=== PATIENT | female | born 1940 | race Caucasian/White ===

== ENCOUNTER → 2017-12-05 | Outpatient (CLI) | payer MEDICARE, MEDICAID ==
[~2017-12-05] MED LIST: ASPI-1160 PO; BENA40TA3 PO; CLOP75TA15 PO; HYDR25TA PO; NITR100C PO; OMEP20CA10 PO; OXYB5TAB11 PO; SIMV20TA6 PO
== END | disposition home or self-care (01) ==
LOC: MAMMO 13:06
PROVIDERS: ATTEND Specialist
DX: Z12.31 Encounter for screening mammogram for malignant neoplasm of breast (principal)
CPT/HCPCS: 77067

== ENCOUNTER 2019-07-25 21:52 | Emergency (ER) | payer MEDICARE, MEDICAID ==
[~2019-07-25] VITALS: Ht 152.4 cm; Wt 93.0 kg
[~2019-07-25 21:52] MED LIST changes: -BENA40TA3 PO; +BENA40TA9 PO; -OMEP20CA10 PO; +OMEP20CA14 PO; -OXYB5TAB11 PO; +OXYB5TAB16 PO; +SIMV-43 PO; -SIMV20TA6 PO
[2019-07-25] MEDS ORDERED: ACETAMINOPHEN 325MG TABLET PO ONE (22:45)
[2019-07-26 00:10] VITALS: BP 160/64
== END 2019-07-26 00:11 | disposition home or self-care (01) ==
LOC: ER 21:52
DX: S90.31XA Contusion of right foot, initial encounter (principal); W21.9XXA Striking against or struck by unspecified sports equipment, initial encounter; Y93.89 Activity, other specified; Y92.89 Other specified places as the place of occurrence of the external cause; Y99.8 Other external cause status; E11.9 Type 2 diabetes mellitus without complications; E78.00 Pure hypercholesterolemia, unspecified; I10 Essential (primary) hypertension; Z86.73 Personal history of transient ischemic attack (TIA), and cerebral infarction without residual deficits; Z79.82 Long term (current) use of aspirin; Z79.899 Other long term (current) drug therapy
CPT/HCPCS: 73630; 99283